=== PATIENT | female | born 1975 | race Caucasian/White ===

== ENCOUNTER 2016-10-14 13:29 | Observation (INO) ==
[2016-10-14] MEDS ORDERED: GI Cocktail 40 ML EACH PO ONE (14:20)
[2016-10-14] MEDS ORDERED: Ondansetron 4 MG/2 ML VIAL IVP ONE (14:22)
[2016-10-14] MEDS ORDERED: Pantoprazole 40 MG VIAL IVP ONE (14:24)
--- NOTE | 2016-10-14 14:30 | Emergency Department Note ---
Disposition Clinical Impression: Acute coronary syndrome, Abdominal pain, epigastric, ECG abnormal Disposition: Admitted As Inpatient Condition: Fair General Adult HPI - General Chief complaint: ED Chest Pain Stated complaint: abd/chest pain Time Seen by Provider: 10/14/16 13:42 Source: patient Limitations: no limitations Nursing Notes Reviewed: Yes Vital Signs Reviewed: Yes - History of Present Illness HPI Narrative: She presents with epigastric pain which is her primary complaint and this is sharp and began yesterday and states this is different from the typical pain she gets from diverticulitis in the lower abdomen. She has had for abdominal CT so far this year. She does have some diarrhea and nausea but no vomiting. No fever. No dysuria or urinary frequency, blood in the urine or stool, vaginal bleeding or discharge. She also has had chest pain since 3:30 this morning which is intermittent lasting between 30 seconds at a time and is sharp he denies any exertional component. No pleuritic aspect. No radiation. No diaphoresis or dyspnea. Social history: Smoker and she does have a history of asthma. No alcohol or drugs. Family history: Positive for heart disease Pain Scale: 8 - Related Data Home Medications Medication Instructions Recorded Confirmed Albuterol Sulfate [Albuterol 2 puff IH Q4H PRN 10/14/16 10/14/16 Inhaler] Dicyclomine [Bentyl] 20 mg PO QID PRN 10/14/16 10/14/16 Omeprazole [PriLOSEC] 40 mg PO BID 10/14/16 10/14/16 Ranitidine HCl [Acid Blood Bank Calendar Control Clerk] 150 mg PO BID 10/14/16 10/14/16 Allergies Allergy/AdvReac Type Severity Reaction Status Date / Time Hydromorphone [From Dilaudid] AdvReac Vomiting Verified 10/14/16 15:52 Review of Systems: She denies any dysuria or urinary frequency, blood in the urine or stool, vaginal bleeding or discharge Past Medical History - Past Medical History Medical history: Reports: asthma, GERD, other Surgical history: Reports: hysterectomy Psychiatric history: Reports: no psych history BLOCK SEALER history: Reports: no BLOCK SEALER history - Social History Smoking Status: Current every day smoker Smokeless Tobacco Status: No Alcohol use: Reports: none Drug use: Reports: none Physical Exam CONSTITUTIONAL: Alert and oriented X3, well-nourished, well appearing, in no apparent distress HEAD: Normocephalic; atraumatic. EYES: PERRL, no scleral icterus. NOSE: The nose is normal in appearance without rhinorrhea RESP: Normal chest excursion with respiration; breath sounds clear and equal bilaterally; no wheezes, rhonchi, or rales CARD: Regular rhythm, without murmurs, rub or gallop ABD: Non-distended; mild discomfort with palpation epigastric area. This area is normal in appearance and soft without rigidity, rebound, guarding. Elsewhere including the right upper and left upper quadrant the abdomen is non- tender, soft,without rigidity, rebound or guarding SKIN: Normal for age and race; warm and dry; no apparent lesions - General Limitations: no limitations General appearance: alert, in no apparent distress Course Vital Signs Temperature 97.8 F 10/14/16 13:30 Pulse Rate 105 10/14/16 13:30 Respiratory Rate 17 10/14/16 13:30 Blood Pressure 127/88 10/14/16 13:30 O2 Sat by Pulse Oximetry 97 10/14/16 13:30 Temperature 97.8 F 10/14/16 13:30 Pulse Rate 85 10/14/16 15:48 Respiratory Rate 17 10/14/16 13:30 Blood Pressure 133/96 10/14/16 15:48 O2 Sat by Pulse Oximetry 97 10/14/16 15:48 Oxygen Delivery Oxygen Delivery Room Air Medical Decision Making - MDM Narrative Medical decision making narrative: I did review the patient's EKG showing sinus tachycardia with a rate of 104 and this does have some T-wave inversion anteriorly we will attempt to find an old EKG to compare this to. Her chest pain symptoms sound atypical for ischemic pain however troponin is ordered and this is pending. Additional labs are ordered. The patient said her chest pain symptoms this morning felt more like reflux and that her primary complaint today is the upper abdominal pain. Testing is pending. Based on my exam she does not have a surgical abdomen so CT scan will not be ordered especially as she has only had 4 CT scans done within the last 12 months. 1431 I did review the second EKG done at 3:52 PM which does show normalization of the anterior T-wave inversion and we did discuss the case with the hospitalist who accepts the patient for admission. Labs have been reviewed. Chest x-ray. The patient will be admitted or watched on the playground monitor with further assessment. 1607 - Medical Records Medical records reviewed: Yes I reviewed the patient's medical records. - Lab Data Lab results reviewed: Yes I reviewed the patient's lab results. Result diagrams: 10/14/16 14:15 10/14/16 14:15 Lab Results 10/14/16 10/14/16 10/14/16 Range/Units 14:15 14:15 14:15 WBC 10.6 (4.3-11.1) K/mcL RBC 5.41 H (3.82-4.97) M/mcL Hgb 13.4 (11.5-15.4) g/dL Hct 42.2 (35.3-44.9) % MCV 78.0 L (83.0-100.0) fL MCH 24.8 L (28.0-33.3) pg MCHC 31.8 (31.6-35.5) g/dL RDW 15.0 H (11.5-14.5) % Plt Count 317 (140-400) K/mcL MPV 10.9 (9.4-12.4) fL Immature Gran % 0.5 (0-4) % Seg Neutrophils % 61.8 % Lymphocytes % 29.9 % Monocytes % 5.9 % Eosinophils % 1.2 % Basophils % 0.7 % Neutrophils # 6.5 (1.6-8.9) K/mcL Lymphocytes # 3.2 (0.6-4.6) K/mcL Monocytes # 0.6 (0.0-1.3) K/mcL Eosinophils # 0.1 (0.0-0.6) K/mcL Basophils # 0.1 (0.0-0.2) K/mcL PT 11.4 (9.4-12.1) Seconds INR 1.1 APTT 31.1 (26.0-36.0) Seconds Sodium 140 (136-145) mEq/L Potassium 4.1 (3.5-4.5) mEq/L Chloride 106 (98-109) mEq/L Carbon Dioxide 24 (19-29) mEq/L BUN 13 (7-20) mg/dL Creatinine 0.88 (0.57-1.11) mg/dL Est GFR ( Amer) > 60 (> 60) Est GFR (Non-Af Amer) > 60 (> 60) BUN/Creatinine Ratio 15 (6-26) Glucose 95 (70-99) mg/dL Calculated Osmolality 290 (280-300) Calcium 10.0 (8.6-10.8) mg/dL Total Bilirubin 0.2 (0.2-1.2) mg/dL Direct Bilirubin 0.1 (0.0-0.5) mg/dL Indirect Bilirubin 0.1 (0.0-1.2) mg/dL AST 11 (5-34) Units/L ALT 9 (0-55) Units/L Alkaline Phosphatase 106 (38-126) Units/L Troponin I (0-0.03) ng/mL Serum Total Protein 8.4 H (6.0-8.3) g/dL Albumin 3.7 (3.5-5.0) g/dL Globulin 4.7 H (2.4-3.5) g/dL Albumin/Globulin Ratio 0.8 L (1.1-2.2) Amylase 55 (25-125) Units/L Lipase 46 (8-78) Units/L TSH 2.554 (0.350-4.840) mcIU/mL 10/14/16 Range/Units 14:15 WBC (4.3-11.1) K/mcL RBC (3.82-4.97) M/mcL Hgb (11.5-15.4) g/dL Hct (35.3-44.9) % MCV (83.0-100.0) fL MCH (28.0-33.3) pg MCHC (31.6-35.5) g/dL RDW (11.5-14.5) % Plt Count (140-400) K/mcL MPV (9.4-12.4) fL Immature Gran % (0-4) % Seg Neutrophils % % Lymphocytes % % Monocytes % % Eosinophils % % Basophils % % Neutrophils # (1.6-8.9) K/mcL Lymphocytes # (0.6-4.6) K/mcL Monocytes # (0.0-1.3) K/mcL Eosinophils # (0.0-0.6) K/mcL Basophils # (0.0-0.2) K/mcL PT (9.4-12.1) Seconds INR APTT (26.0-36.0) Seconds Sodium (136-145) mEq/L Potassium (3.5-4.5) mEq/L Chloride (98-109) mEq/L Carbon Dioxide (19-29) mEq/L BUN (7-20) mg/dL Creatinine (0.57-1.11) mg/dL Est GFR ( Amer) (> 60) Est GFR (Non-Af Amer) (> 60) BUN/Creatinine Ratio (6-26) Glucose (70-99) mg/dL Calculated Osmolality (280-300) Calcium (8.6-10.8) mg/dL Total Bilirubin (0.2-1.2) mg/dL Direct Bilirubin (0.0-0.5) mg/dL Indirect Bilirubin (0.0-1.2) mg/dL AST (5-34) Units/L ALT (0-55) Units/L Alkaline Phosphatase (38-126) Units/L Troponin I 0.00 (0-0.03) ng/mL Serum Total Protein (6.0-8.3) g/dL Albumin (3.5-5.0) g/dL Globulin (2.4-3.5) g/dL Albumin/Globulin Ratio (1.1-2.2) Amylase (25-125) Units/L Lipase (8-78) Units/L TSH (0.350-4.840) mcIU/mL - Radiology Data Radiology results reviewed: Yes I reviewed the patient's radiology results. Chest X-Ray 10/14/16 14:32 IMPRESSION: No acute cardiopulmonary process. D/ / 10/14/2016 15:05:55 Gerard Rico MD / bcarter Interpreting Provider: Gerard Rico MD
[2016-10-14 14:36] LABS: INR 1.1; Prothrombin Time 11.4 Seconds (9.4-12.1)
[2016-10-14 14:37] LABS: Basophils # 0.1 K/mcL (0.0-0.2); Basophils % 0.7 %; Eosinophils # 0.1 K/mcL (0.0-0.6); Eosinophils % 1.2 %; Hematocrit 42.2 % (35.3-44.9); Hemoglobin 13.4 g/dL (11.5-15.4); Immature Granulocytes % 0.5 % (0-4); Lymphocytes # 3.2 K/mcL (0.6-4.6); Lymphocytes % 29.9 %; Mean Corpuscular HGB Conc 31.8 g/dL (31.6-35.5); Mean Corpuscular Hemoglobin 24.8 pg (28.0-33.3); Mean Platelet Volume 10.9 fL (9.4-12.4); Monocytes # 0.6 K/mcL (0.0-1.3); Monocytes % 5.9 %; Neutrophils # 6.5 K/mcL (1.6-8.9); Platelet Count 317 K/mcL (140-400); Red Blood Count 5.41 M/mcL (3.82-4.97); Segmented Neutrophils % 61.8 %
[2016-10-14 14:38] LABS: Activated Partial Thrombo Time 31.1 Seconds (26.0-36.0)
[2016-10-14 14:41] LABS: Alanine Aminotransferase 9 Units/L (0-55); Albumin 3.7 g/dL (3.5-5.0); Albumin/Globulin Ratio 0.8 (1.1-2.2); Alkaline Phosphatase 106 Units/L (38-126); Amylase 55 Units/L (25-125); Aspartate Amino Transferase 11 Units/L (5-34); BUN/Creatinine Ratio 15 (6-26); Bilirubin,Direct 0.1 mg/dL (0.0-0.5); Bilirubin,Indirect 0.1 mg/dL (0.0-1.2); Bilirubin,Total 0.2 mg/dL (0.2-1.2); Blood Urea Nitrogen 13 mg/dL (7-20); Carbon Dioxide 24 mEq/L (19-29); Chloride 106 mEq/L (98-109); Globulin 4.7 g/dL (2.4-3.5); Glucose 95 mg/dL (70-99); Lipase 46 Units/L (8-78); Osmolality,Calculated 290 (280-300); Potassium 4.1 mEq/L (3.5-4.5); Sodium 140 mEq/L (136-145); Total Protein 8.4 g/dL (6.0-8.3); eGFR For African Americans > 60 (> 60); eGFR For Non-African Americans > 60 (> 60)
[2016-10-14 15:01] LABS: Thyroid Stimulating Hormone 2.554 mcIU/mL (0.350-4.840)
[2016-10-14] MEDS ORDERED: Aspirin 81 MG TAB.CHEW PO ONE (15:37)
[2016-10-14] MEDS ORDERED: Nitroglycerin 0.4 MG TAB.SUBL SL PRN (16:07)
[2016-10-14] MEDS ORDERED: Ondansetron 4 MG/2 ML VIAL IVP PRN (16:09)
[2016-10-14] MEDS ORDERED: Acetaminophen 325 MG TABLET PO PRN (16:09)
[2016-10-14] MEDS ORDERED: *HR* Morphine 2 MG/ML SYRINGE IVP PRN (16:09)
[2016-10-14] MEDS ORDERED: Naloxone 0.4 MG/ML INJ IVP PRN (16:09)
[2016-10-14] MEDS ORDERED: Mag Hydrox/Al Hydrox/Simeth 30 ML UDC PO PRN (16:09)
--- NOTE | 2016-10-14 16:15 | Internal Med History&Physical ---
Date of Encounter: 10/14/16 Time of Encounter: 16:13 Assessment and Plan (1) Chest pain Current visit: Yes Status: Acute Risk factors such as smoking, early CAD in family Abnormal EKG as described above Continue aspirin, statin, nitroglycerin and morphine as needed. Consult cardiology to decide on a stress test versus a cardiac catheterization due to her symptoms Order an echocardiogram to evaluate wall motion abnormalities Monitor troponins, check a lipid panel in the morning Omeprazole for GI prophylaxis and Lovenox for DVT prophylaxis. The patient will be admitted for observation. Full code. Time spent on this admission 40 minutes Qualifiers: Chest pain type: chest pain due to myocardial ischemia Ischemic chest pain type: unspecified angina pectoris type Qualified Code(s): I20.9 - Angina pectoris, unspecified (2) Tobacco abuse Current visit: Yes Status: Acute Nicotine patch, smoking cessation counseling given for 5 min (3) Abdominal pain, epigastric Current visit: Yes Status: Acute Has history of GERD Continue omeprazole 40 mg twice a day We will need to reschedule upper endoscopy and colonoscopy with Dr. Lowry as outpatient (4) ECG abnormal Current visit: Yes Status: Acute (5) Asthma Current visit: No Status: Chronic Possible acute asthma exacerbation Start prednisone 40 mg daily, albuterol as needed Qualifiers: Asthma severity: unspecified severity Asthma complication type: uncomplicated Qualified Code(s): J45.909 - Unspecified asthma, uncomplicated Internal Medicine - H&P: HPI Chief complaint: Chest pain Admitted From: Emergency Dept History of present illness: Ms. Gonzalez is a 41 year old female with a past medical history of tobacco use, family feverish history of CAD with her father having a myocardial infarction in his 30s, was scheduled to have an upper endoscopy and a colonoscopy today by Dr. Lowry which had to be canceled as the patient was very nauseous since yesterday and could not take the prep solution. The patient says that she still having intermittent chest discomfort and pain since 3:30 in the morning, 8 out of 10 in intensity lasting for less than a minute each time. Then in the emergency room the first EKG shows T-wave inversions in the anterior leads and T -wave flattening in the inferior leads but improved on the second EKG. Troponin and chest x-rays are unremarkable. Her heart rate was 106. Also she feels short of breath and she has history of asthma. At the moment she is wheezing loudly Past Med Surg Social Fam HX - Past Medical History Medical history: asthma, GERD, other (Diverticulitis, tobacco use, insomnia) Psychiatric history: no psych history - Past Surgical History Surgical History: hysterectomy - Social History Smoking Status: Current every day smoker Packs per day: One pack per day Smokeless Tobacco Status: No Alcohol use: none Drug use: none - Additional Family History Additional family history: Father with diabetes, first [place] in his 30s and CABG 2 Internal Medicine - H&P: Meds Albuterol Sulfate [Albuterol Inhaler] 2 puff IH Q4H PRN 10/14/16 [History] Dicyclomine [Bentyl] 20 mg PO QID PRN 10/14/16 [History] Omeprazole [PriLOSEC] 40 mg PO BID 10/14/16 [History] Ranitidine HCl [Acid Astrochemist] 150 mg PO BID 10/14/16 [History] Allergies Hydromorphone [From Dilaudid] Adverse Reaction (Verified 10/14/16 15:52) Vomiting All Systems PM: A 10-system review of systems was performed and is negative for pertinent findings except as documented above in the HPI. Review of systems: At the moment which was 8 out of 10 in intensity before. Other systems out of the 10 reviewed were negative - Constitutional Vitals: Temp Pulse Resp BP Pulse Ox 97.8 F 85 17 133/96 97 10/14/16 13:30 10/14/16 15:48 10/14/16 13:30 10/14/16 15:48 10/14/16 15:48 General appearance: Present: A&O X 3, obese - Head Head exam: Present: atraumatic, normocephalic - Eye Eye exam: Present: PERRL, conjuntiva pink, sclera anicteric Pupils: Present: PERRL - Neck Neck exam general surgery: Present: supple, trachea midline. Absent: lymphadenopathy - Respiratory Respiratory exam: Present: CTAB. Absent: accessory muscle use, rales, rhonchi, wheezes - Cardiovascular Cardiovascular exam: Present: RRR, +S1, +S2, tachycardia. Absent: diastolic murmur, gallop, rubs, systolic murmur - GI/Abdominal GI/Abdominal exam: Present: normal bowel sounds, soft, no peritoneal signs. Absent: distended, tenderness - Extremities Exam Extremities exam: Present: warm, radial pulses palpable and symetrical. Absent : calf tenderness, cyanotic, pedal edema - Neurological Exam Neurological exam: Present: CN II-XII intact, oriented X3, no focal deficits. Absent: pronater drift, facial droop, speech deficit - Skin Skin exam: Present: dry, intact Internal Med - H&P Results - Labs CBC & Chem 7: 10/14/16 14:15 10/14/16 14:15
[2016-10-14] MEDS: 0.9 % Sodium Chloride 1,000 ML IVC SCH (18:54)
[2016-10-14] MEDS: predniSONE 20 MG TABLET PO SCH (18:55)
[2016-10-14] MEDS: Famotidine 20 MG TABLET PO SCH (20:18)
[2016-10-15 04:06] LABS: INR 1.1; Prothrombin Time 11.4 Seconds (9.4-12.1)
[2016-10-15 04:09] LABS: Basophils % 0.4 %; Hematocrit 39.3 % (35.3-44.9); Hemoglobin 12.3 g/dL (11.5-15.4); Immature Granulocytes % 0.6 % (0-4); Lymphocytes # 1.2 K/mcL (0.6-4.6); Lymphocytes % 14.7 %; Mean Corpuscular HGB Conc 31.3 g/dL (31.6-35.5); Mean Corpuscular Hemoglobin 24.6 pg (28.0-33.3); Mean Corpuscular Volume 78.6 fL (83.0-100.0); Mean Platelet Volume 10.8 fL (9.4-12.4); Monocytes # 0.2 K/mcL (0.0-1.3); Monocytes % 2.2 %; Neutrophils # 6.8 K/mcL (1.6-8.9); Platelet Count 309 K/mcL (140-400); Segmented Neutrophils % 82.1 %
[2016-10-15 04:17] LABS: Alanine Aminotransferase 8 Units/L (0-55); Albumin 3.3 g/dL (3.5-5.0); Albumin/Globulin Ratio 0.8 (1.1-2.2); Alkaline Phosphatase 96 Units/L (38-126); Aspartate Amino Transferase 10 Units/L (5-34); BUN/Creatinine Ratio 16 (6-26); Bilirubin,Total 0.2 mg/dL (0.2-1.2); Blood Urea Nitrogen 14 mg/dL (7-20); Calcium 9.6 mg/dL (8.6-10.8); Carbon Dioxide 23 mEq/L (19-29); Chloride 108 mEq/L (98-109); Globulin 4.2 g/dL (2.4-3.5); Glucose 151 mg/dL (70-99); Magnesium 2.1 mg/dL (1.6-2.6); Osmolality,Calculated 291 (280-300); Potassium 4.5 mEq/L (3.5-4.5); Sodium 139 mEq/L (136-145); Total Protein 7.5 g/dL (6.0-8.3); eGFR For African Americans > 60 (> 60); eGFR For Non-African Americans > 60 (> 60)
[2016-10-15 04:20] LABS: Chol/HDL Ratio 6.9 (0-4.9)
[2016-10-15] MEDS ORDERED: Aspirin 325 MG TABLET PO SCH (09:00)
--- NOTE | 2016-10-15 09:29 | Cardiology Consult Note ---
Date of Encounter: 10/15/16 Time of Encounter: 08:30 Assessment and Plan (1) Abdominal pain, epigastric Current Visit: Yes Status: Acute Per Cardiology: Patient with known history of GERD and diverticulitis. Actually has pending outpatient evaluation in terms of EGD and colonoscopy as supposed to be completed yesterday. Symptoms appear to be more GI in nature. Recommend proceed with GI evaluation as planned. (2) Chest pain Current Visit: Yes Status: Acute Per Cardiology: Atypical chest pain that occurred at rest in the setting of indigestion. Troponins 0.004. ECG is reviewed with nonspecific T-wave inversions with no ECG for comparison. Does not experience exertional chest pain symptoms. Echo pending. I had discussion with patient regarding potential further evaluation in terms of stress test, however patient agreeable to evaluate echo. Will decrease aspirin to baby aspirin. Currently on statin. Further recommendations after echo resulted. Discussed and reviewed with Dr. Jimenez. Patient verbalized understanding and agreed to plan. Qualifiers: Chest pain type: chest pain due to myocardial ischemia Ischemic chest pain type: unspecified angina pectoris type Qualified Code(s): I20.9 - Angina pectoris, unspecified (3) Asthma Current Visit: No Status: Chronic Per Cardiology: Known history of asthma. Inspiratory wheezes noted throughout. Further management per primary service. Qualifiers: Asthma severity: unspecified severity Asthma complication type: uncomplicated Qualified Code(s): J45.909 - Unspecified asthma, uncomplicated (4) Tobacco abuse Current Visit: Yes Status: Chronic Per Cardiology: History of nicotine abuse of one pack per day for 6 years. Recommend smoking cessation. Discussion w patient/family: The assessment and plan as outlined above was discussed with the patient who expressed understanding and agreement. All questions were answered. Thank you for involving us in the care of your patient. Please call with any questions. History of Present Illness Consult date: 10/15/16 Requesting physician: Livan Travis Consult reason: CP Chief complaint: CP History of present illness: Ms. Gonzalez is a 41 year old female relevant past medical history of asthma, GERD , diverticulitis, and nicotine abuse. She reports smoking about one pack per day for 6 years. Reports family history father with CAD with CABG on 2 separate occasions with the first one occurring in his 60s. Cardiology consult for evaluation of chest pain symptoms. Patient reports pending outpatient EGD and colonoscopy which was actually scheduled for yesterday. She reports Wednesday she did not start her prep due to "just not feeling well" with progressive nausea throughout the day. She reports throughout the day and night she experienced midsternal epigastric burning and indigestion like symptoms not relieved with her Zantac and Prilosec. She reports she developed midsternal chest burning as well has now subsided. Prior to this episode she denies any chest pain symptoms with exertional activities. She denies any dyspnea on exertion, dizziness, syncope, falls, palpitations. Denies any concerns of fatigue. She denies any recent fever, chills, nausea, or vomiting. Does report she experinced Diarrhea during this time as well. Past Med Surg Social Fam HX - Past Medical History Attestation: Yes The following information was validated with the patient. Source: patient, old records reviewed Medical history: asthma, GERD, other Psychiatric history: no psych history - Past Surgical History Surgical History: hysterectomy - Social History Smoking Status: Current every day smoker Packs per day: One pack per day x 6 yrs Smokeless Tobacco Status: No Alcohol use: none Drug use: none - Family History Father Name: Adonis Gonzalez Age: 71 Living Status: Still Living Hx Family Cardiac Disorders: Yes (CABG on 2 separate occasions with initial in his 60s) Hx Family Respiratory Disorders: Yes Hx Family Endocrine Disorder: Yes Medications and Allergies Albuterol Sulfate [Albuterol Inhaler] 2 puff IH Q4H PRN 10/14/16 [History] Dicyclomine [Bentyl] 20 mg PO QID PRN 10/14/16 [History] Omeprazole [PriLOSEC] 40 mg PO BID 10/14/16 [History] Ranitidine HCl [Acid Assistant To The Director] 150 mg PO BID 10/14/16 [History] Allergies Hydromorphone [From Dilaudid] Adverse Reaction (Verified 10/14/16 15:52) Vomiting All Systems Review: A 10-system review of systems was performed and is negative for pertinent findings except as documented above in the HPI. - Cardiovascular Cardiovascular: as per HPI, chest pain at rest - Gastrointestinal Gastrointestinal: abdominal pain, diarrhea, nausea Physical Examination Vital Signs, Last 4 Hours Temp Pulse Resp BP Pulse Ox 10/15/16 07:35 97.9 F 95 16 115/74 93 General: Conversant, No Apparent Distress, Other (Anxious) HEENT: Atraumatic, Normocephaly, Mucus Membranes Moist Cardiac: Reg Rate and Rhythm, Normal S1 and S2, No Murmur Lungs: Other (Inspiratory wheezes noted throughout) Neuro: Alert and responsive, No focal deficits noted Abdomen: Soft, Non-Tender Skin: No rashes noted on visualized skin Musculoskeletal: No Chest Wall Tenderness Extremities: No Edema, Normal Pulses Results 10/15/16 03:14 10/15/16 03:14 Lab Results Laboratory Tests 10/14/16 10/14/16 10/14/16 14:15 14:15 16:21 INR Troponin I 0.00 0.00 TSH 2.554 10/14/16 10/15/16 10/15/16 22:39 03:14 03:14 INR 1.1 Troponin I 0.00 0.00 TSH Laboratory Tests 10/15/16 03:14 Triglycerides 115 Cholesterol 248 H LDL Cholesterol, Calc 189 H HDL Cholesterol 36 L ITS Impressions Chest X-Ray 10/14/16 13:35 IMPRESSION: 1. No active pulmonary disease. D/ / Joey Domingo MD / Joey Domingo MD Interpreting Provider: Joey Domingo MD Chest X-Ray 10/14/16 14:32 IMPRESSION: No acute cardiopulmonary process. D/ / 10/14/2016 15:05:55 Gerard Rico MD / bcarter Interpreting Provider: Gerard Rico MD Active Medications Acetaminophen (Tylenol) 650 mg PO Q6HR PRN PRN Reason: Mild Pain (1-3) Stop: 04/15/17 16:10 Al Hydrox/Mg Hydrox/Simethicone (Maalox) 15 ml PO Q6HR PRN PRN Reason: Dyspepsia Stop: 04/15/17 16:10 Albuterol Sulfate (Albuterol Inhaler) 2 puff IH [id number] PRN PRN Reason: Shortness Of Breath Stop: 04/15/17 20:01 Aspirin (Aspirin) 325 mg PO DAILY [facility] Stop: 04/16/17 09:01 Atorvastatin Calcium (Lipitor) 40 mg PO HS [facility] Stop: 04/15/17 21:01 Last Admin: 10/14/16 20:18 Dose: 40 mg Dicyclomine HCl (Bentyl) 20 mg PO QID PRN PRN Reason: Abdominal Pain Stop: 04/15/17 16:12 Last Admin: 10/14/16 20:31 Dose: 20 mg Famotidine (Pepcid) 20 mg PO BID [facility] Stop: 04/15/17 21:01 Last Admin: 10/14/16 20:18 Dose: 20 mg Sodium Chloride (0.9 % Sodium Chloride) 1,000 mls @ 60 mls/hr IVC .[id number] [facility] Stop: 04/15/17 16:16 Last Admin: 10/14/16 18:54 Dose: 60 mls/hr Morphine Sulfate (Morphine Sulfate) 2 mg IVP Q4HR PRN PRN Reason: Severe Pain (7-10) Stop: 04/15/17 16:10 Naloxone HCl (Narcan) 0.4 mg IVP Q2MIN PRN PRN Reason: Opioid Reversal Stop: 04/15/17 16:10 Nitroglycerin (Nitroglycerin) 0.4 mg SL Q5MIN PRN PRN Reason: Chest Pain Stop: 04/15/17 16:08 Omeprazole (Prilosec) 40 mg PO BID [facility] PRN Reason: Protocol Stop: 04/15/17 21:01 Last Admin: 10/14/16 20:18 Dose: 40 mg Ondansetron HCl (Zofran) 4 mg IVP Q8HR PRN PRN Reason: Nausea And Vomiting Stop: 04/15/17 16:10 Last Admin: 10/15/16 06:11 Dose: 4 mg Prednisone (Prednisone) 40 mg PO DAILY [facility] Stop: 04/15/17 16:16 Last Admin: 10/14/16 18:55 Dose: 40 mg - Imaging and Cardiology Chest Xray: report reviewed Echo: pending - EKG Interpretation EKG results cardiology: personally reviewed (Nonspecific T-wave inversions in V1 through V3, no previous ECG for comparison), sinus rhythm Consult Discharge Plan - Plan Referrals: Rick Dawson, SPECIAL EDUCATION MATH TEACHER [Primary Care Provider] - 10/27/16 1:15 pm
[2016-10-15] MEDS ORDERED: Aspirin 81 MG TAB.CHEW PO SCH (09:33)
--- NOTE | 2016-10-15 10:58 | Electrocardiograph Report ---
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
--- NOTE | 2016-10-15 11:03 | Electrocardiograph Report ---
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
[2016-10-15] MEDS: 0.9 % Sodium Chloride 1,000 ML IVC SCH (11:20)
[2016-10-15] MEDS: Famotidine 20 MG TABLET PO SCH (13:25)
[2016-10-15] MEDS: predniSONE 20 MG TABLET PO SCH (13:25)
--- NOTE | 2016-10-15 14:22 | Event Note ---
Date of Encounter: 10/15/16 Time of Encounter: 14:20 - Cardiology Event Note Echo showed EF preserved 65%, normal diastolic function, normal RV size and function, no significant valvular dysfunction, no evidence of pulmonary hypertension, no signal wall motion abnormalities. Discussed with Dr. Jimenez, will s/o, re-consult PRN, f/u as outpatient (scheduled).
--- NOTE | 2016-10-15 15:25 | Discharge Summary ---
"Date of Encounter: 10/15/16 Time of Encounter: 15:22 - Discharge Diagnosis (1) Chest pain Priority: Primary Status: Acute Qualifiers: Chest pain type: other chest pain Qualified Code(s): R07.89 - Other chest pain; R07.8 - Other chest pain (2) Abdominal pain, epigastric Priority: Secondary Status: Acute (3) Asthma Priority: Secondary Status: Chronic Qualifiers: Asthma severity: unspecified severity Asthma complication type: uncomplicated Qualified Code(s): J45.909 - Unspecified asthma, uncomplicated (4) Tobacco abuse Priority: Secondary Status: Chronic - Discharge Medications Prescriptions: Pravastatin Sodium 20 mg PO HS #60 tablet Home Medications: Albuterol Sulfate [Albuterol Inhaler] 2 puff IH Q4H PRN 10/14/16 [History] Dicyclomine [Bentyl] 20 mg PO QID PRN 10/14/16 [History] Omeprazole [PriLOSEC] 40 mg PO BID 10/14/16 [History] Ranitidine HCl [Acid Repeat Photocomposing Machine Operator] 150 mg PO BID 10/14/16 [History] Pravastatin Sodium 20 mg PO HS #60 tablet 10/15/16 [Rx] Allergies/Adverse Reactions: Allergies Hydromorphone [From Dilaudid] Adverse Reaction (Verified 10/14/16 15:52) Vomiting Procedures/tests Complete & Pending: Procedures Performed prior 72 hours Category Date Time Status EV echocardiogram Routine Y 10/14/16 16:11 Completed Date of admission: 10/14/16 16:00 Primary care physician: Rick Dawson CNP Consults: 10/14/16 16:07 Consult to Cardiology [CONS] Routine Comment: Consulting Provider: Cardiology [facility] Reason for Consult: abnormal EKG with CP Call Completed: Yes Discharging clinician: Jennifer Vyas Anticipated date of discharge: 10/15/16 - Patient Status Disposition: Home, Self-Care Condition: Fair Functional capacity at discharge: independent ambulation Overall status at discharge: patient is progressing back to baseline - Discharge Instructions Instructions: Chest Pain (DC), Asthma (DC) Follow Up With: Rick Dawson CNP [Primary Care Provider] - 10/27/16 1:15 pm Additional Instructions: Follow-up with GI to reschedule upper GI endoscopy and colonoscopy as outpatient. A follow-up with cardiology as outpatient In one to 2 weeks Follow-up appointments: If there is not an appointment listed below, please call your physician and schedule a follow-up appointment. If you have congestive heart failure and your symptoms return, make an appointment with your physician. Medication List: Carry an up to date list of medications you are taking at all time. We have given you an updated medication list including any new medications that you have been prescribed. Please provide that list to your primary provider Symptoms: If your condition changes or you experience any of the following symptoms, notify your physician immediately: Unusual or worsening pain, fever, persistent nausea and vomiting, bleeding, increase in swelling (especially in your legs), sudden weight gain, extreme dizziness, chest pain, increased drainage or redness from a wound or incision. Go to the emergency department if you experience a problem with breathing. Weights: If you have a history of swelling or shortness of breath, weigh yourself daily and notify your physician if you have a weight gain of two or more pounds in one day or 5 or more pounds in a week. If you experience any of the warning signs for stroke: Sudden numbness or weakness of the face, arm or leg; especially on one side of the body, sudden confusion, trouble speaking or understanding, sudden trouble seeing in one or both eyes, sudden trouble walking, dizziness, loss of balance or coordination, sudden sever headache with no cause; Call 911 or go to the emergency room. Stroke is a medical emergency. Some risk factors for stroke: Age, cigarette smoking, diabetes, excessive alcohol consumption, family history , high blood pressure, overweight, physical inactivity, prior stroke, heart attack, diagnosis of carotid artery stenosis or other artery disease. If you smoke, STOP: Smoking or tobacco use significantly increases your risk of heart and lung disease. Your chance of disease greatly increases if you continue to smoke. For more information, call the [place] tobacco quit line for smoking cessation - QUIT-NOW ( ) - Diet and Activity Activity: increase activity as tolerated Diet: advance to your usual diet, low fat, low cholesterol, low salt diet Hospital course: Ms. Gonzalez is a 41 year old female sent with a history of a gastroesophageal reflux disease who was observed in the hospital after presenting to the ER with chest pain while she was waiting for an upper GI endoscopy and colonoscopy that was scheduled as outpatient. She was scheduled for the procedure but could not go through because she was not feeling well. She had developed epigastric burning kind of pain that was not relieved with his Zantac and Prilosec. She was also having some midsternal chest pain. As such she was observed in the hospital. Her EKG showed some nonspecific T-wave inversions in the anterior leads with no prior comparison EKG. Cardiology was consulted. Her troponins were trended. They have been negative so far. Cardiology recommended doing a 2-D echocardiogram which did not show any abnormalities. Patient has normal ejection fraction. As such the recommend outpatient follow-up. Her pain appears to be more gastroesophageal in origin. We will continue her home medications to treat her symptoms. She will need to follow up with GI to reschedule her upper GI endoscopy as outpatient for further workup. Her cholesterol levels are abnormal and she has been placed on statin. She has been advised tobacco cessation. - Time Spent with Patient Total time spent providing and/or coordinating discharge services: Less than 30 minutes (25 min) - Constitutional Vitals: Temp Pulse Resp BP Pulse Ox 97.5 F L 79 17 114/76 95 10/15/16 11:08 10/15/16 11:08 10/15/16 11:08 10/15/16 11:08 10/15/16 11:08 General appearance: Present: A&O X 3, obese, answers questions appropriately - Respiratory Respiratory exam: Present: CTAB. Absent: accessory muscle use, rales, rhonchi, wheezes - Cardiovascular Cardiovascular exam: Present: RRR, +S1, +S2. Absent: diastolic murmur, gallop, rubs, systolic murmur - GI/Abdominal GI/Abdominal exam: Present: normal bowel sounds, soft, no peritoneal signs. Absent: distended, tenderness - Extremities Exam Extremities exam: Present: warm, radial pulses palpable and symetrical. Absent : calf tenderness, cyanotic, pedal edema - Attending Attestation This document has been at least partially created by [employer] - innovate | mentor | invest recognition technology by Dr. Vyas. Errors in grammar, wording or other phrases may exist. If errors are found after the documentation is signed, they will be addressed individually in the addendum section of this document when appropriate."
[2016-10-15 15:30] VITALS: BP 111/74
== END 2016-10-15 16:22 | disposition home or self-care (01) ==
LOC: 3BNU 13:29 → EMEROO 13:29 → SUATTDRO 16:00 → 3BNU 16:15
PROVIDERS: ADMIT Internal Medicine; ATTEND Internal Medicine